=== PATIENT | female | born 1945 | race Two or more races ===

== ENCOUNTER 2018-06-24 08:47 | Outpatient (CLI) | payer OTHER ==
[~2018-06-24 08:47] MED LIST: CARISOPRODOL350 MG; IRBESARTAN-HCT1 EACH; NEURONTIN300 MG; NUCYNTA50 MG; PERCOCET 5/3251 TAB; ZANAFLEX4 M1
== END 2018-06-24 08:57 | disposition home or self-care (01) ==
LOC: MRI 08:47
DX: M54.5 Low back pain (principal); M25.561 Pain in right knee; M25.562 Pain in left knee; M25.552 Pain in left hip; M25.551 Pain in right hip
CPT/HCPCS: 72148